=== PATIENT | male | born 1970 | race Caucasian/White ===

== ENCOUNTER 2016-05-08 22:41 | Emergency (ER) | payer BC, OTHER ==
[2016-05-09 00:31] LABS: APPEARANCE,URINE CLEAR; BILIRUBIN,URINE NEGATIVE (NEGATIVE); GLUCOSE, URINE NEGATIVE (NEGATIVE); KETONES,URINE NEGATIVE (NEGATIVE); LEUKOCYTE ESTERASE,URINE NEGATIVE (NEGATIVE); NITRITE,URINE NEGATIVE (NEGATIVE); PROTEIN,URINE NEGATIVE (NEGATIVE); URINE SPECIFIC GRAVITY 1.017; UROBILINOGEN,URINE NEGATIVE mg/dL (<2.0)
--- NOTE | 2016-05-09 01:15 | ER Document Report ---
ED Medical Screen (RME) - General Chief Complaint: Flank Pain Stated Complaint: FLANK PAIN Time seen by provider: 01:13 Mode of Arrival: Ambulatory Information source: Patient Notes: 45-year-old male presents to ED for bilateral kidney pain. He states he has a history of renal failure 2 years ago. He states when he had kidney failure at the tip him overnight give him fluids and his kidney started working again. He states he also has a history of kidney stones last one was last year. I have greeted and performed a rapid initial assessment of this patient. A comprehensive ED assessment and evaluation of the patient, analysis of test results and completion of medical decision making process will be conducted by an additional ED providers. TRAVEL OUTSIDE OF THE [place] IN LAST 30 DAYS: No - Related Data Allergies/Adverse Reactions: carisoprodol [From Soma] Allergy (Verified 06/28/15 07:05) tramadol [Tramadol] Allergy (Verified 06/28/15 07:05) Past Medical History - Past Medical History Cardiac Medical History: Reports: Hx Coronary Artery Disease, Hx Hypertension Denies: Hx Heart Attack Pulmonary Medical History: Reports: Hx Pneumonia Denies: Hx Asthma, Hx Bronchitis, Hx COPD, Hx Tuberculosis Neurological Medical History: Denies: Hx Cerebrovascular Accident, Hx Seizures Renal/ Medical History: Denies: Hx Peritoneal Dialysis Musculoskeltal Medical History: Reports Hx Arthritis Psychiatric Medical History: Reports: Hx Depression - Immunizations Hx Diphtheria, Pertussis, Tetanus Vaccination: Yes Physical Exam - Vital signs Vitals: Temp Pulse Resp BP Pulse Ox 98.1 F 102 H 20 155/92 H 95 05/08/16 23:04 05/08/16 23:04 05/08/16 23:04 05/08/16 23:04 05/08/16 23:04 Course - Vital Signs Vital signs: Temp Pulse Resp BP Pulse Ox 98.1 F 102 H 20 155/92 H 95 05/08/16 23:04 05/08/16 23:04 05/08/16 23:04 05/08/16 23:04 05/08/16 23:04 - Laboratory Laboratory results interpreted by me: 05/09/16 00:15 Urine Ascorbic Acid 40 H
[2016-05-09 02:16] LABS: ABSOLUTE BASOPHILS # (AUTO) 0.1 10^3/uL (0.0-0.2); ABSOLUTE EOSINOPHILS # (AUTO) 0.5 10^3/uL (0.0-0.6); ABSOLUTE LYMPHOCYTES (AUTO) 3.8 10^3/uL (0.5-4.7); ABSOLUTE MONOCYTES (AUTO) 0.8 10^3/uL (0.1-1.4); ABSOLUTE NEUT (AUTO) 5.3 10^3/uL (1.7-8.2); BASOPHILS % (AUTO) 0.9 % (0-2); EOSINOPHILS % (AUTO) 4.8 % (0-6); HEMATOCRIT 44.6 % (37.9-51.0); HEMOGLOBIN 15.8 g/dL (13.5-17.0); HGB HCT DIFFERENCE 2.8; LYMPHOCYTES % (AUTO) 36.5 % (13-45); MEAN CORPUSCULAR HEMOGLOBIN 31.4 pg (27.0-33.4); MEAN CORPUSCULAR HGB CONC 35.4 g/dL (32.0-36.0); MEAN CORPUSCULAR VOLUME 89 fl (80-97); MONOCYTES % (AUTO) 7.3 % (3-13); RED BLOOD COUNT 5.01 10^6/uL (4.35-5.55); SEGMENTED NEUTROPHILS % (AUTO) 50.5 % (42-78); WHITE BLOOD COUNT 10.4 10^3/uL (4.0-10.5)
[2016-05-09 02:35] LABS: ALANINE AMINOTRANSFERASE 51 U/L (21-72); ALBUMIN 4.1 g/dL (3.5-5.0); ALKALINE PHOSPHATASE 62 U/L (38-126); ANION GAP 13 (5-19); ASPARTATE AMINO TRANSFERASE 38 U/L (17-59); BILIRUBIN,TOTAL 0.7 mg/dL (0.2-1.3); BLOOD UREA NITROGEN 16 mg/dL (7-20); CALCIUM 10.1 mg/dL (8.4-10.2); CARBON DIOXIDE 27 mmol/L (22-30); CHLORIDE 103 mmol/L (98-107); CREATININE RESULT 0.83 mg/dL (0.52-1.25); GLUCOSE 108 mg/dL (75-110); LIPASE 40.5 U/L (23-300); POTASSIUM 3.9 mmol/L (3.6-5.0); SODIUM 142.5 mmol/L (137-145); TOTAL PROTEIN 7.2 g/dL (6.3-8.2)
[2016-05-09] MEDS ORDERED: IBUPROFEN 600 MG TABLET PO ONE (03:39)
--- NOTE | 2016-05-09 03:39 | ER Document Report ---
ED Neck/Back Problem - General Chief Complaint: Flank Pain Stated Complaint: FLANK PAIN Time seen by provider: 03:37 Mode of Arrival: Ambulatory Information source: Patient TRAVEL OUTSIDE OF THE [place] IN LAST 30 DAYS: No - HPI Patient complains to provider of: Pain, Lower back Onset: Yesterday Onset: Gradual Quality of pain: Achy Severity: Moderate Pain Level: 3 Context: Lifting Recent injury: No Exacerbated by: Movement of trunk Relieved by: Nothing Similar symptoms previously: Yes Recently seen / treated by doctor: No Notes: Patient is a 45-year-old male presenting to the emergency room complaining of "kidney pain", however when I asked him where his pain was he points to the lumbar area of his low back, he has no CVA pain or tenderness, he denies any injury or trauma, no bowel or bladder dysfunction, no numbness or tingling to his groin or extremities, he reports a history of previous low back pain, herniated disks, for which he takes hydrocodone 10 mg, which did not seem to help his low back pain over the past 2 days, he denies any injury or trauma, however he the job he works requires a lot of heavy lifting - Related Data Allergies/Adverse Reactions: carisoprodol [From Soma] Allergy (Verified 06/28/15 07:05) tramadol [Tramadol] Allergy (Verified 06/28/15 07:05) Past Medical History - General Information source: Patient - Social History Smoking Status: Current Every Day Smoker Family History: Reviewed & Not Pertinent Patient has suicidal ideation: No Patient has homicidal ideation: No - Past Medical History Cardiac Medical History: Reports: Hx Coronary Artery Disease, Hx Hypertension Denies: Hx Heart Attack Pulmonary Medical History: Reports: Hx Pneumonia Denies: Hx Asthma, Hx Bronchitis, Hx COPD, Hx Tuberculosis Neurological Medical History: Denies: Hx Cerebrovascular Accident, Hx Seizures Renal/ Medical History: Denies: Hx Peritoneal Dialysis Musculoskeltal Medical History: Reports Hx Arthritis Psychiatric Medical History: Reports: Hx Depression - Immunizations Hx Diphtheria, Pertussis, Tetanus Vaccination: Yes Review of Systems - Review of Systems Constitutional: No symptoms reported EENT: No symptoms reported Cardiovascular: No symptoms reported Respiratory: No symptoms reported Gastrointestinal: No symptoms reported Genitourinary: No symptoms reported Male Genitourinary: No symptoms reported Musculoskeletal: See HPI Skin: No symptoms reported Hematologic/Lymphatic: No symptoms reported Neurological/Psychological: No symptoms reported -: Yes All other systems reviewed and negative Physical Exam - Vital signs Vitals: Temp Pulse Resp BP Pulse Ox 98.1 F 102 H 20 155/92 H 95 05/08/16 23:04 05/08/16 23:04 05/08/16 23:04 05/08/16 23:04 05/08/16 23:04 Interpretation: Normal - General General appearance: Appears well, Alert - HEENT Head: Normocephalic, Atraumatic Eyes: Normal Conjunctiva: Normal Extraocular movements intact: Yes Eyelashes: Normal Pupils: PERRL - Respiratory Respiratory status: No respiratory distress - Cardiovascular Rhythm: Regular - Abdominal Inspection: Normal - Back Back: Tender - Tenderness to palpate and paraspinal musculature of lumbar spine - Extremities General upper extremity: Normal inspection General lower extremity: Normal inspection, Normal weight bearing - Neurological Neuro grossly intact: Yes Cognition: Normal Orientation: AAOx4 Tone Coma Scale Eye Opening: Spontaneous Tone Coma Scale Verbal: Oriented [place] Coma Scale Motor: Obeys Commands Tone Coma Scale Total: 15 - Psychological Associated symptoms: Normal affect, Normal mood - Skin Skin Temperature: Warm Skin Moisture: Dry Skin Color: Normal Course - Re-evaluation Re-evalutation: 05/09/16 05:56 Patient's lab findings were discussed with him at bedside which are unremarkable , symptoms are more consistent with lumbar spine related pain, he was advised to continue taking his hydrocodone at home as previously prescribed, he was also given a prescription for Motrin 600 mg to take as well, there was recommended for patient to perform gentle stretching, use heating packs to low back to help with symptomatic relief, follow-up with his primary care provider or return if symptoms worsen, patient acknowledges understanding and agreement with this plan - Vital Signs Vital signs: Temp Pulse Resp BP Pulse Ox 98.6 F 71 18 130/88 H 96 05/09/16 03:51 05/09/16 03:51 05/09/16 03:51 05/09/16 03:51 05/09/16 03:51 - Laboratory Result Diagrams: 05/09/16 02:07 05/09/16 02:07 Laboratory results interpreted by me: 05/09/16 00:15 Urine Ascorbic Acid 40 H Discharge - Discharge Clinical Impression: Low back pain Qualifiers: Chronicity: acute Back pain laterality: bilateral Sciatica presence: without sciatica Qualified Code(s): M54.5 - Low back pain Condition: Stable Disposition: HOME, SELF-CARE Instructions: Low Back Pain ([facility]), Stretching Exercises for the Back ([facility]) Additional Instructions: Follow-up with your primary care provider in 2-3 days. Return to the emergency room immediately if symptoms worsen or any additional concerns. Refrain from heavy lifting or strenuous exercise until symptoms are completely resolved. Prescriptions: Ibuprofen [Motrin 600 Mg Tablet] 600 mg PO TID #30 tablet Forms: Return to Work
[2016-05-09 03:52] VITALS: BP 130/88
== END 2016-05-09 03:52 | disposition home or self-care (01) ==
LOC: ER 22:41
DX: M54.5 Low back pain (principal); R10.9 Unspecified abdominal pain; F17.210 Nicotine dependence, cigarettes, uncomplicated
CPT/HCPCS: 36415; 80053; 81001; 83690; 85025; 99284

== ENCOUNTER → 2017-12-27 | Outpatient (CLI) | payer OTHER ==
--- NOTE | 2017-12-27 14:24 | RADIOLOGY REPORT (SQ) ---
EXAM DESCRIPTION: MRI HEAD WITHOUT COMPLETED DATE/TIME: 12/27/2017 1:47 pm REASON FOR STUDY: DIFFUSE TBI W/ LOSS OF CONSCIOUSNESS OF UNSP DURATION S06.2X9D DIFFUSE TBI W LOSS OF CONSCIOUSNESS OF UNSP DURATIO R51 HEADACHE R42 DIZZINESS AND GIDDINESS COMPARISON: None. TECHNIQUE: Multiplanar imaging includes non-contrasted T1, T2, FLAIR, and diffusion with ADC map seq uences. Images stored on PACS. LIMITATIONS: None. FINDINGS: ANATOMY: No anomalies. Normal vascular flow voids. Pituitary fossa normal. CSF SPACES: Normal in size and contour. No hemorrhage. CEREBRUM: Sulci and gyri normal in size and contour. Normal white matter signal on FLAIR imaging. No evidence of hemorrhage, mass, or extraaxial fluid collection. POSTERIOR FOSSA: No signal alteration. No hemorrhage. No edema, masses or mass effect. Internal сергей tory canals, cerebello-pontine angles, mastoids normal. DIFFUSION IMAGING: Negative for acute or sub-acute infarction. ORBITS: No masses. Globes normal. PARANASAL SINUSES: Mucosal nodule in the floor of the right maxillary sinus. OTHER: No other significant finding. IMPRESSION: NORMAL MRI OF THE BRAIN WITHOUT INTRAVENOUS GADOLINIUM CONTRAST. EVIDENCE OF ACUTE STROKE: NO. TECHNICAL DOCUMENTATION: JOB ID: [id number] [employer]- All Rights Reserved Reading location - IP/workstation name: [email or web address]
--- NOTE | 2017-12-27 16:01 | RADIOLOGY REPORT (SQ) ---
EXAM DESCRIPTION: MRI RT UPPER JOINT WITHOUT COMPLETED DATE/TIME: 12/27/2017 1:47 pm REASON FOR STUDY: PAIN IN RIGHT SHOULDER S06.2X9D DIFFUSE TBI W LOSS OF CONSCIOUSNESS OF UNSP DURAT IO R51 HEADACHE R42 DIZZINESS AND GIDDINESS COMPARISON: None. TECHNIQUE: Right shoulder images acquired and stored on PACS. Multiplanar imaging to include fat sen sitive sequences such as T1, water sensitive sequences such as FST2/STIR, cartilage sensitive sequenc es such as FSPD/gradient-echo sequences. LIMITATIONS: None. FINDINGS: BONE MARROW AND CORTEX: No worrisome bone lesions or marrow replacement. No occult fractur es. JOINT OR BURSAL EFFUSION: No significant joint or bursal fluid. GLENO-HUMERAL ARTICULATION: Posterior glenohumeral narrowing. Prominent posterior glenoid bone cysti c changes with probable adjacent extraosseous ganglion formation. ACROMION AND AC JOINT: Mild degenerative arthropathy. Subacromial space relatively maintained. ROTATOR CUFF AND INTERVAL: Intrasubstance tear throughout the cuff insertion. Sparing of bursal and articular surface fibers. No full-thickness breech identified. No cuff muscle atrophy. LABRUM AND BICEPS LABRAL COMPLEX: There is at least fraying along the biceps anchor undersurface. Biceps tendon looks normal. REMAINDER OF LABRUM AND IGHL : Ill definition, loss of posterior labral tear. PERIARTICULAR AND ADJACENT SOFT TISSUES: No masses or abnormal nodes. OTHER: No other significant finding. IMPRESSION: 1. Posterior glenoid changes as above. Mixed bone and soft tissue cystic appearance wi th irregularity of the posterior glenoid. This may reflect previous reverse [place] injury. Patient reportedly has some history of seizures, which can predispose to posterior dislocation. 2. Cuff te ar. Portions of this looks high-grade partial but with spurring of articular and bursal surface fibe rs. 3. Other findings as above. TECHNICAL DOCUMENTATION: JOB ID: [id number] [employer]- All Rights Reserved Reading location - IP/workstation name: [email or web address]
== END ==
LOC: RAD 11:40
PROVIDERS: ATTEND Physician Assistant
DX: S06.2X9D Diffuse traumatic brain injury with loss of consciousness of unspecified duration, subsequent encounter (principal); W19.XXXD Unspecified fall, subsequent encounter; M25.511 Pain in right shoulder; M25.60 Stiffness of unspecified joint, not elsewhere classified; R51 Headache; R42 Dizziness and giddiness
CPT/HCPCS: 70551